=== PATIENT | female | born 1945 | race African-American/Black ===

== ENCOUNTER 2021-06-29 11:55 | Outpatient (CLI) | payer MEDICARE | END 2021-06-29 11:56 | disposition home or self-care (01) | LOC: CSHRAD 11:55 | PROVIDERS: ATTEND Family Medicine Sports Medicine | DX: M25.551 Pain in right hip (principal); M79.671 Pain in right foot; M16.11 Unilateral primary osteoarthritis, right hip; M77.31 Calcaneal spur, right foot ==

== ENCOUNTER 2022-11-29 12:39 | Emergency (ER) | payer MEDICARE ==
[2022-11-29] MEDS ORDERED: traMADol HCl 50 MG TAB ONE (14:01)
== END 2022-11-29 14:52 | disposition home or self-care (01) ==
LOC: CSHERS 12:39
DX: M54.2 Cervicalgia (principal); I10 Essential (primary) hypertension; E11.9 Type 2 diabetes mellitus without complications
CPT/HCPCS: 99283

== ENCOUNTER 2023-11-15 10:40 | Emergency (ER) | payer MEDICARE ==
[2023-11-15] MEDS ORDERED: hydrALAZINE 20 MG/ML VIAL ONE (11:33)
[2023-11-15] MEDS ORDERED: Acetaminophen 325 MG TAB ONE (11:33)
[2023-11-15] MEDS ORDERED: Boostrix 0.5 ML (Tdap) VIAL (>/=7 yrs of age) ONE (12:04)
== END 2023-11-15 12:20 | disposition home or self-care (01) ==
LOC: CSHERS 10:40
DX: S09.90XA Unspecified injury of head, initial encounter (principal); S01.511A Laceration without foreign body of lip, initial encounter; S40.011A Contusion of right shoulder, initial encounter; I10 Essential (primary) hypertension; E11.9 Type 2 diabetes mellitus without complications; W01.0XXA Fall on same level from slipping, tripping and stumbling without subsequent striking against object, initial encounter; Z23 Encounter for immunization
CPT/HCPCS: 70450; 73030; 90715; J0360; 90471; 96374